=== PATIENT | male | born 1985 | race Native Hawaiian/Other Pacific Islander ===

== ENCOUNTER 2019-12-09 14:59 | Outpatient (CLI) | payer OTHER ==
[2019-12-09 15:09] LABS: PLATELET COUNT 251 K/uL (142-355)
[2019-12-09 16:16] LABS: POTASSIUM 4.5 mmol/L (3.6-5.2)
== END 2019-12-09 20:10 | disposition home or self-care (01) ==
LOC: LAB 14:59
PROVIDERS: Nurse Practitioner Family
DX: E66.9 Obesity, unspecified (principal)
CPT/HCPCS: 80053; 80061; 84443; 85027